=== PATIENT | male | born 1985 | race Two or more races ===

== ENCOUNTER 2025-04-19 10:59 | Emergency (ER) | payer SELFPAY ==
[~2025-04-19] VITALS: Ht 177.8 cm; Wt 140.6 kg
[2025-04-19 11:20] VITALS: BP 118/75; TEMP 98.4; O2SAT 99
== END 2025-04-19 11:23 | disposition home or self-care (01) ==
LOC: ER 11:20
DX: K42.9 Umbilical hernia without obstruction or gangrene (principal)